=== PATIENT | female | born 1945 | race Caucasian/White ===

== ENCOUNTER 2018-01-18 11:56 | Emergency (ER) | payer MEDICARE | END 2018-01-18 13:48 | disposition home or self-care (01) | LOC: D.ER 11:56 | DX: S00.83XA Contusion of other part of head, initial encounter (principal); W06.XXXA Fall from bed, initial encounter; Y93.89 Activity, other specified; Y92.013 Bedroom of single-family (private) house as the place of occurrence of the external cause ==